=== PATIENT | male | born 1985 | race Caucasian/White ===

== ENCOUNTER 2018-02-25 20:52 | Emergency (ER) | payer OTHER ==
[2018-02-25 20:58] VITALS: BP 143/91; PULSE 89; RESP 18; TEMP 98.2; O2SAT 97
--- NOTE | 2018-02-25 21:17 | PD ---
HPI Chief Complaint: Psychiatric Symptoms Time Seen by Provider: 21:12 Travel History International Travel<30 days: No Contact w/Intl Traveler<30days: No Traveled to known affect area: No History of Present Illness HPI 32-year-old male presents under Crowley act initiated by the Police Department. The patient reports that he has been depressed because he has not seen his daughter since July 2017. Today he apparently was pointing to a rope in his backyard insinuating that he was going to hang himself. Someone, possibly his fiance, called the police. He does report that he has been depressed but denies any suicidal thoughts. He reports that he uses drugs frequently, specifically he has most recently used Dilaudid, Roxicodone, marijuana and Adderall. He has also punched a wall 3 times this week with his right hand as a way to relieve his anger. He has right hand pain. Symptoms are moderate, aggravated by being by his daughter and aggravated by punching a wall with no relieving factors. No other complaints. PFSH Past Medical History ADD: Yes ADHD: Yes Asthma: Yes Bipolar Disorder: Yes Depression: Yes COPD: Yes Diabetes: No Patient Takes Glucophage: No Diminished Hearing: No Tetanus Vaccination: Unknown Social History Alcohol Use: Yes Tobacco Use: Yes Substance Use: Yes Allergies-Medications (Allergen,Severity, Reaction): Coded Allergies: coconut (Verified Allergy, Unknown, 02/25/18) Reported Meds & Prescriptions Reported Meds & Active Scripts Active No Active Prescriptions or Reported Medications Review of Systems Except as stated in HPI: all other systems reviewed are Neg Physical Exam Narrative GENERAL: Well-developed well-nourished male no acute distress SKIN: Warm and dry. HEAD: Atraumatic. Normocephalic. EYES: Pupils equal and round. No scleral icterus. No injection or drainage. ENT: No nasal bleeding or discharge. Mucous membranes pink and moist. NECK: Trachea midline. No JVD. CARDIOVASCULAR: Regular rate and rhythm. No murmur appreciated. RESPIRATORY: No accessory muscle use. Clear to auscultation. Breath sounds equal bilaterally. GASTROINTESTINAL: Abdomen soft, non-tender, nondistended. Hepatic and splenic margins not palpable. MUSCULOSKELETAL: No obvious deformities. No clubbing. No cyanosis. No edema. Tender to palpation overlying the right hand third fourth and fifth metacarpals. No bruising or soft tissue swelling. The patient maintains full range of motion of the right hand. NEUROLOGICAL: Awake and alert. No obvious cranial nerve deficits. Motor grossly within normal limits. Normal speech. PSYCHIATRIC: Appropriate mood and affect; insight and judgment normal. Data Data Last Documented VS Vital Signs Date Time Temp Pulse Resp B/P (MAP) Pulse Ox O2 Delivery O2 Flow Rate FiO2 02/25/18 20:58 98.2 89 18 143/91 (108) 97 Orders Orders Complete Blood Count With Diff (02/25/18 21:12) Comprehensive Metabolic Panel (02/25/18 21:12) Thyroid Stimulating Hormone (02/25/18 21:12) Psych Screen (02/25/18 21:12) Drug Screen, Random Urine (02/25/18 21:12) Alcohol (Ethanol) (02/25/18 21:12) Hand, Complete ([id number]) (02/25/18 ) Labs Laboratory Tests Test 02/25/18 21:05 White Blood Count 9.3 TH/MM3 Red Blood Count 6.29 MIL/MM3 Hemoglobin 19.0 GM/DL Hematocrit 55.5 % Mean Corpuscular Volume 88.3 FL Mean Corpuscular Hemoglobin 30.2 PG Mean Corpuscular Hemoglobin Concent 34.2 % Red Cell Distribution Width 14.2 % Platelet Count 295 TH/MM3 Mean Platelet Volume 7.8 FL Neutrophils (%) (Auto) 66.5 % Lymphocytes (%) (Auto) 24.9 % Monocytes (%) (Auto) 6.6 % Eosinophils (%) (Auto) 1.6 % Basophils (%) (Auto) 0.4 % Neutrophils # (Auto) 6.2 TH/MM3 Lymphocytes # (Auto) 2.3 TH/MM3 Monocytes # (Auto) 0.6 TH/MM3 Eosinophils # (Auto) 0.2 TH/MM3 Basophils # (Auto) 0.0 TH/MM3 CBC Comment DIFF FINAL Differential Comment Blood Urea Nitrogen 8 MG/DL Creatinine 1.01 MG/DL Random Glucose 78 MG/DL Albumin 4.6 GM/DL Calcium Level 9.7 MG/DL Aspartate Amino Transf (AST/SGOT) 16 U/L Alanine Aminotransferase (ALT/SGPT) 28 U/L Sodium Level 142 MEQ/L Potassium Level 4.2 MEQ/L Chloride Level 105 MEQ/L Carbon Dioxide Level 26.2 MEQ/L Anion Gap 11 MEQ/L Estimat Glomerular Filtration Rate 86 ML/MIN Urine Barbiturates Screen NEG Urine Amphetamines Screen NEG Urine Benzodiazepines Screen POS Urine Cocaine Screen NEG Urine Cannabinoids Screen POS Ethyl Alcohol Level 29 MG/DL MDM Medical Decision Making Medical Screen Exam Complete: Yes Emergency Medical Condition: Yes Medical Record Reviewed: Yes Differential Diagnosis Substance-induced mood disorder, acute psychosis, adjustment reaction, major depressive disorder Narrative Course Mental health screening discussed with the patient. Psychiatric screen ordered. Medically cleared for psychiatric disposition. Diagnosis Primary Impression: Medical clearance for psychiatric admission Scripts No Active Prescriptions or Reported Meds Dennys Armstrong Feb 25, 2018 21:17
[2018-02-25 21:30] LABS: AUTOMATED NEUTROPHIL # 6.2 TH/MM3 (1.8-7.7); BASOPHIL % 0.4 % (0.0-2.0); EOSINOPHIL # 0.2 TH/MM3 (0-0.4); EOSINOPHIL % 1.6 % (0.0-4.0); HEMATOCRIT 55.5 % (39.0-51.0); LYMPH % 24.9 % (9.0-44.0); LYMPHOCYTE # 2.3 TH/MM3 (1.0-4.8); MEAN CELL VOLUME 88.3 FL (80.0-100.0); MEAN CORPUSCULAR HEMOGLOBIN 30.2 PG (27.0-34.0); MEAN CORPUSCULAR HGB CONC 34.2 % (32.0-36.0); MEAN PLATELET VOLUME 7.8 FL (7.0-11.0); MONO % 6.6 % (0.0-8.0); MONOCYTE # 0.6 TH/MM3 (0-0.9); NEUT % 66.5 % (16.0-70.0); PLATELET COUNT 295 TH/MM3 (150-450); RED BLOOD COUNT 6.29 MIL/MM3 (4.50-5.90); RED CELL DISTRIBUTION WIDTH 14.2 % (11.6-17.2); WHITE BLOOD COUNT 9.3 TH/MM3 (4.0-11.0)
--- NOTE | 2018-02-25 21:34 | RADRPT ---
EXAM DATE: 02/25/2018 9:24 PM EDT AGE/SEX: 32 years / Male INDICATIONS: Right posterior hand pain, punched wall CLINICAL DATA: This is the patient's initial encounter. Patient reports that signs and symptoms have been present for 3 days and indicates a pain score of 6/10. MEDICAL/SURGICAL HISTORY: None. None. COMPARISON: No prior exams available for comparison. FINDINGS: Bony structures are intact and in normal alignment. Osseous density is normal. Soft tissues are unre markable. No radiopaque foreign bodies seen. CONCLUSION: No acute bony abnormality. Electronically signed by: Clayton Aguirre MD 02/25/2018 9:33 PM EDT
[2018-02-25 21:50] LABS: ALBUMIN 4.6 GM/DL (3.4-5.0); ALT (GPT) 28 U/L (12-78); AST (GOT) 16 U/L (15-37); BICARBONATE 26.2 MEQ/L (21.0-32.0); BLOOD UREA NITROGEN 8 MG/DL (7-18); CALCIUM 9.7 MG/DL (8.5-10.1); CHLORIDE 105 MEQ/L (98-107); CREATININE 1.01 MG/DL (0.60-1.30); GLOMERULAR FILTRATION RATE 86 ML/MIN (>89); GLUCOSE,RANDOM 78 MG/DL (74-106); SODIUM (NA) 142 MEQ/L (136-145)
[2018-02-25 22:01] LABS: ALKALINE PHOSPHATASE 67 U/L (45-117); TOTAL BILIRUBIN ADULT 0.5 MG/DL (0.2-1.0); TOTAL PROTEIN 8.9 GM/DL (6.4-8.2)
[2018-02-25 23:16] VITALS: BP 136/64; PULSE 86; RESP 20; TEMP 99.1; O2SAT 97
[2018-02-26] MEDS ORDERED: ACETAMINOPHEN 325 MG TAB PO ONE (10:00)
--- NOTE | 2018-02-26 11:20 | PD ---
Physical Exam Narrative I was asked by the psych department to discharge patient after patient was evaluated and Crowley acted lifted by psych. Patient was previously medically cleared by previous provider. Please see their documentation for full H&P. Patient denies any homicidal or suicidal ideations. Denies any medical concerns at this time. Patient states he just wants to get his clothes back and go smoke a cigarette. Data Data Last Documented VS Vital Signs Date Time Temp Pulse Resp B/P (MAP) Pulse Ox O2 Delivery O2 Flow Rate FiO2 02/25/18 23:16 99.1 86 20 136/64 (88) 97 Room Air Orders Orders Complete Blood Count With Diff (02/25/18 21:12) Comprehensive Metabolic Panel (02/25/18 21:12) Thyroid Stimulating Hormone (02/25/18 21:12) Psych Screen (02/25/18 21:12) Drug Screen, Random Urine (02/25/18 21:12) Alcohol (Ethanol) (02/25/18 21:12) Hand, Complete ([id number]) (02/25/18 ) Diet Regular Basic (02/26/18 Breakfast) Acetaminophen (Tylenol) (02/26/18 10:00) Diet Regular Basic (02/26/18 Lunch) Ed Discharge Order (02/26/18 11:20) Labs Laboratory Tests Test 02/25/18 21:05 White Blood Count 9.3 TH/MM3 Red Blood Count 6.29 MIL/MM3 Hemoglobin 19.0 GM/DL Hematocrit 55.5 % Mean Corpuscular Volume 88.3 FL Mean Corpuscular Hemoglobin 30.2 PG Mean Corpuscular Hemoglobin Concent 34.2 % Red Cell Distribution Width 14.2 % Platelet Count 295 TH/MM3 Mean Platelet Volume 7.8 FL Neutrophils (%) (Auto) 66.5 % Lymphocytes (%) (Auto) 24.9 % Monocytes (%) (Auto) 6.6 % Eosinophils (%) (Auto) 1.6 % Basophils (%) (Auto) 0.4 % Neutrophils # (Auto) 6.2 TH/MM3 Lymphocytes # (Auto) 2.3 TH/MM3 Monocytes # (Auto) 0.6 TH/MM3 Eosinophils # (Auto) 0.2 TH/MM3 Basophils # (Auto) 0.0 TH/MM3 CBC Comment DIFF FINAL Differential Comment Blood Urea Nitrogen 8 MG/DL Creatinine 1.01 MG/DL Random Glucose 78 MG/DL Total Protein 8.9 GM/DL Albumin 4.6 GM/DL Calcium Level 9.7 MG/DL Alkaline Phosphatase 67 U/L Aspartate Amino Transf (AST/SGOT) 16 U/L Alanine Aminotransferase (ALT/SGPT) 28 U/L Total Bilirubin 0.5 MG/DL Sodium Level 142 MEQ/L Potassium Level 4.2 MEQ/L Chloride Level 105 MEQ/L Carbon Dioxide Level 26.2 MEQ/L Anion Gap 11 MEQ/L Estimat Glomerular Filtration Rate 86 ML/MIN Thyroid Stimulating Hormone 3rd Gen 1.000 uIU/ML Urine Opiates Screen NEG Urine Barbiturates Screen NEG Urine Amphetamines Screen NEG Urine Benzodiazepines Screen POS Urine Cocaine Screen NEG Urine Cannabinoids Screen POS Ethyl Alcohol Level 29 MG/DL MDM Supervised Visit with DB: No Narrative Course Patient in no obvious distress upon re-evaluation. Crowley act was lifted by psych. Any questions/concerns in reference to patient diagnosis/condition discussed and clarified prior to patient's discharge. Reinforced sheer importance of close follow up with patient's primary physician or primary care clinic and/or Kelechi Kaur. Instructed patient to return to ED immediately, if symptoms return/worsen. Patient showed understanding of above instructions. Further instructions and recommendations were detailed in discharge paperwork. Patient ambulated without difficulty out of ED at discharge. Diagnosis Primary Impression: Medical clearance for psychiatric admission Referrals: [facility] Patient Instructions: General Instructions Additional Instruction: Follow-up with your primary care physician and/or Kelechi Kaur this week for reevaluation. Return to the emergency department if symptoms get worse. Scripts No Active Prescriptions or Reported Meds Disposition: 01 DISCHARGE HOME Condition: Stable Luis Hayes Feb 26, 2018 11:20
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
== END 2018-02-26 13:01 | disposition home or self-care (01) ==
LOC: NEDAMB 20:52 → NEPJ 02-26 13:01
DX: F43.20 Adjustment disorder, unspecified (principal); M79.641 Pain in right hand; J45.909 Unspecified asthma, uncomplicated; J44.9 Chronic obstructive pulmonary disease, unspecified; W22.01XA Walked into wall, initial encounter; Z72.0 Tobacco use; F90.9 Attention-deficit hyperactivity disorder, unspecified type; F31.9 Bipolar disorder, unspecified
CPT/HCPCS: 73130; 80053; 80307; 84443; 85025; 99284